=== PATIENT | female | born 1990 | race African-American/Black ===

== ENCOUNTER 2017-11-12 07:42 | Emergency (ER) | payer SELFPAY ==
[2017-11-12] MEDS: HYDROcodone/APAP 5/325MG 1 TAB TABLET PO (08:02)
== END 2017-11-12 08:06 | disposition home or self-care (01) ==
LOC: ER 08:06
DX: K04.7 Periapical abscess without sinus (principal)
CPT/HCPCS: 99283

== ENCOUNTER 2019-05-05 21:15 | Emergency (ER) | payer SELFPAY ==
[~2019-05-05] VITALS: Ht 177.8 cm; Wt 113.4 kg
[~2019-05-05 21:15] MED LIST: AMOX500T PO
[2019-05-05 21:20] VITALS: BP 149/102
[2019-05-05] MEDS ORDERED: AMOX500C PO (22:17)
[2019-05-05] MEDS ORDERED: CETI10TA22 PO (22:17)
[2019-05-05] MEDS ORDERED: METH4TAB2 PO (22:17)
[2019-05-05] MEDS ORDERED: CIPR7.5D LEFT EAR (22:17)
--- NOTE | 2019-05-05 22:17 | PHYS DOC ---
Past Medical History Past Medical History: No Pertinent History Past Surgical History: No Surgical History Alcohol Use: None Drug Use: None Adult General Chief Complaint Chief Complaint: EARACHE/EAR PAIN HPI HPI Patient is a 28 year old female who presents with 2 days of left ear pain and muffled hearing. Patient states that she does have a lot of sinus issues as chronic nasal congestion. Patient denies any kind of fever or anything patient states the left ear is throbbing. Patient states she's beginning a Q-tip and putting nails sporran or Vaseline in her ear thinking this would help. Patient rates her pain an 8 out of 10 at this time. Review of Systems Review of Systems Eyes: Denies change in visual acuity, redness, or eye pain. Left ear pain. [] HENT: nasal congestion or denies sore throat [] All other systems were reviewed and found to be within normal limits, except as documented in this note. Allergies Allergies Allergies Coded Allergies Type Severity Reaction Last Updated Verified No Known Drug Allergies 02/25/14 No Physical Exam Physical Exam Constitutional: Well developed, well nourished, no acute distress, non-toxic appearance. [] HENT: Normocephalic, atraumatic, bilateral external ears normal, oropharynx moist, no oral exudates, nose normal. Left ear reddened tympanic membrane and red, swollen, tenderness to ear canal.[] Eyes: PERRLA, EOMI, conjunctiva normal, no discharge. [] Cardiovascular:Heart rate regular rhythm, no murmur [] Lungs & Thorax: Bilateral breath sounds clear to auscultation [] Skin: Warm, dry, no erythema, no rash. [] Neurologic: Alert and oriented X 3, normal motor function, normal sensory funct ion, no focal deficits noted. [] Psychologic: Affect normal, judgement normal, mood normal. [] Current Patient Data Vital Signs Vital Signs Date Time Temp Pulse Resp B/P (MAP) Pulse Ox O2 Delivery O2 Flow Rate FiO2 05/05/19 21:20 99.0 85 18 149/102 (118) 98 Room Air 99.0 EKG EKG [] Radiology/Procedures Radiology/Procedures [] Course & Med Decision Making Course & Med Decision Making Patient is a 28 year old female who presents with 2 days of left ear pain and m uffled hearing. Patient states that she does have a lot of sinus issues as chronic nasal congestion. Patient denies any kind of fever or anything patient states the left ear is throbbing. Patient states she's beginning a Q-tip and putting Neosporin or Vaseline in her ear thinking this would help. Patient rates her pain an 8 out of 10 at this time. Alert and oriented. Skin pink warm and dry. Patient has left ear otitis media with a reddened eardrum and a tightness externa as the ear canal itself is swollen and red and tender with examination. Patient is afebrile. Lungs are clear to auscultation all lobes. Throat is pink without exudates or swelling. No sinus tenderness with palpation. Speaks in full clear sentences. Ambulatory with a steady gait. Patient denies chest pain, shortness of air, cough, chest congestion, dizziness, syncope, fever, nausea, vomiting, diarrhea, abdominal pain. Patient to start taking Zyrtec. I will give the patient a prescription for Ciprodex, amoxicillin, Medrol Dosepak. Dragon Disclaimer Dragon Disclaimer This electronic medical record was generated, in whole or in part, using a voice recognition dictation system. Departure Departure Impression: Primary Impression: Otitis externa of left ear Additional Impression: Otitis media Disposition: HOME, SELF-CARE Condition: STABLE Referrals: NO PCP (PCP) Patient Instructions: Otitis Externa, Otitis Media, Adult Additional Instructions: Follow-up with primary care provider. Take as prescribed. Take ibuprofen or Tylenol to help with pain. Scripts Methylprednisolone (MEDROL) 4 Mg Tab.ds.pk 1 PKG PO UD, #1 PKG Prov: YANNA MANZANARES APR05/05/19 Ciprofloxacin Hcl/Dexameth (CIPRODEX OTIC SUSPENSION) 7.5 Ml Drops.susp 4 DROP LEFT EAR BID for 10 Days, #1 BOTTLE Prov: YANNA MANZANARES APR05/05/19 Amoxicillin (AMOXICILLIN) 500 Mg Capsule 1 CAP PO BID, #20 CAP Prov: YANNA MANZANARES 05/05/19 Cetirizine Hcl (ZYRTEC) 10 Mg Tablet 1 TAB PO DAILY, #30 TAB 2 Refills Prov: YANNA MANZANARES APR05/05/19 Problem Qualifiers Primary Impression: Otitis externa of left ear Otitis externa type: unspecified type Chronicity: acute Qualified Codes: H60.502 - Unspecified acute noninfective otitis externa, left ear Additional Impression: Otitis media Otitis media type: suppurative Chronicity: acute Laterality: left Recurrence: non-recurrent Spontaneous tympanic membrane rupture: without spontaneous rupture Qualified Codes: H66.002 - Acute suppurative otitis media without spontaneous rupture of ear drum, left ear YANNA MANZANARES APRN May 05, 2019 22:17
== END 2019-05-05 22:26 | disposition home or self-care (01) ==
LOC: ER 21:15
DX: H66.002 Acute suppurative otitis media without spontaneous rupture of ear drum, left ear (principal); H60.92 Unspecified otitis externa, left ear
CPT/HCPCS: 99283

== ENCOUNTER 2019-11-05 14:07 | Emergency (ER) | payer BC ==
[~2019-11-05] VITALS: Ht 175.3 cm; Wt 109.0 kg
[~2019-11-05 14:07] MED LIST changes: +AMOX500C PO; +CETI10TA24 PO; +CIPR7.5D LEFT EAR; +METH4TAB2 PO
[2019-11-05 16:20] VITALS: BP 161/100
[2019-11-05] MEDS ORDERED: AMOX500C PO (17:04)
--- NOTE | 2019-11-05 17:04 | PHYS DOC ---
Past Medical History Past Medical History: No Pertinent History Past Surgical History: No Surgical History Smoking Status: Never Smoker Alcohol Use: Occasionally Drug Use: None Adult General Chief Complaint Chief Complaint: DENTAL PROBLEM HPI HPI Patient is a 29 year old [f__sex] who presents with [] Review of Systems Review of Systems Constitutional: Denies fever or chills [] Eyes: Denies change in visual acuity, redness, or eye pain [] HENT: Denies nasal congestion or sore throat [] Respiratory: Denies cough or shortness of breath [] Cardiovascular: No additional information not addressed in HPI [] GI: Denies abdominal pain, nausea, vomiting, bloody stools or diarrhea [] : Denies dysuria or hematuria [] Musculoskeletal: Denies back pain or joint pain [] Integument: Denies rash or skin lesions [] Neurologic: Denies headache, focal weakness or sensory changes [] Endocrine: Denies polyuria or polydipsia [] All other systems were reviewed and found to be within normal limits, except as documented in this note. Allergies Allergies Allergies Coded Allergies Type Severity Reaction Last Updated Verified No Known Drug Allergies 02/25/14 No Physical Exam Physical Exam Constitutional: Well developed, well nourished, no acute distress, non-toxic appearance. [] HENT: Normocephalic, atraumatic, bilateral external ears normal, oropharynx moist, no oral exudates, nose normal. [] Eyes: PERRLA, EOMI, conjunctiva normal, no discharge. [] Neck: Normal range of motion, no tenderness, supple, no stridor. [] Cardiovascular:Heart rate regular rhythm, no murmur [] Lungs & Thorax: Bilateral breath sounds clear to auscultation [] Abdomen: Bowel sounds normal, soft, no tenderness, no masses, no pulsatile masses. [] Skin: Warm, dry, no erythema, no rash. [] Back: No tenderness, no CVA tenderness. [] Extremities: No tenderness, no cyanosis, no clubbing, ROM intact, no edema. [] Neurologic: Alert and oriented X 3, normal motor function, normal sensory function, no focal deficits noted. [] Psychologic: Affect normal, judgement normal, mood normal. [] Current Patient Data Vital Signs Vital Signs Date Time Temp Pulse Resp B/P (MAP) Pulse Ox O2 Delivery O2 Flow Rate FiO2 3/30/20 16:20 98.8 86 16 161/100 (120) 99 Room Air 98.8 EKG EKG [] Radiology/Procedures Radiology/Procedures [] Course & Med Decision Making Course & Med Decision Making Pertinent Labs and Imaging studies reviewed. (See chart for details) [] Dragon Disclaimer Dragon Disclaimer This electronic medical record was generated, in whole or in part, using a voice recognition dictation system. Departure Departure Impression: Primary Impression: Otitis media Additional Impression: Dental caries Disposition: HOME, SELF-CARE Condition: STABLE Referrals: NO PCP (PCP) Patient Instructions: Dental Abscess, Otitis Media, Adult Additional Instructions: Patient is instructed to follow up with PCP in one to 2 days. Appropriate discharge instructions given to patient to return to the ED or to seek immediate medical evaluation. Patient is instructed to return to the ED if symptoms worsen or if any concerns. Scripts Amoxicillin (AMOXICILLIN) 500 Mg Capsule 1 CAP PO TID for OM, #30 CAP Prov: ANTHONY GORE DO 11/05/19 Problem Qualifiers ANTHONY GORE DO Nov 05, 2019 17:04
== END 2019-11-05 18:23 | disposition home or self-care (01) ==
LOC: ER 14:07
DX: H66.90 Otitis media, unspecified, unspecified ear (principal); K02.9 Dental caries, unspecified; K08.89 Other specified disorders of teeth and supporting structures
CPT/HCPCS: 99283

== ENCOUNTER 2020-06-26 22:46 | Emergency (ER) | payer BC ==
[~2020-06-26] VITALS: Ht 177.8 cm; Wt 109.9 kg
[~2020-06-26 22:46] MED LIST changes: -CETI10TA24 PO; +CETI10TA74 PO
[2020-06-26 23:00] VITALS: BP 139/86
[2020-06-26 23:21] LABS: CLARITY,URINE HAZY; COLOR,URINE RED
[2020-06-26 23:26] LABS: BACTERIA,URINE MANY /HPF (0-FEW); RBC,URINE >40 /HPF (0-2); WBC,URINE >40 /HPF (0-4)
[2020-06-26] MEDS ORDERED: NITR100C62 PO (23:33)
--- NOTE | 2020-06-26 23:33 | PHYS DOC ---
Past Medical History Past Medical History: No Pertinent History Past Surgical History: No Surgical History Smoking Status: Never Smoker Alcohol Use: Occasionally Drug Use: None General Adult EDM: Chief Complaint: PAIN ON URINATION HPI: HPI: Patient is a 29 year old FEMALE presents with a 2 days history of urinary frequency, urgency, and dysuria. Patient has been taking azo and drinking cranberry juice. Review of Systems: Review of Systems: Constitutional: Denies fever or chills. [] Eyes: Denies change in visual acuity. [] HENT: Denies nasal congestion or sore throat. [] Respiratory: Denies cough or shortness of breath. [] Cardiovascular: Denies chest pain or edema. [] GI: Denies abdominal pain, nausea, vomiting, bloody stools or diarrhea. [] : positive dysuria urinary frequency urinary urgency Musculoskeletal: Denies back pain or joint pain. [] Integument: Denies rash. [] Neurologic: Denies headache, focal weakness or sensory changes. [] Endocrine: Denies polyuria or polydipsia. [] Lymphatic: Denies swollen glands. [] Psychiatric: Denies depression or anxiety. [] Heart Score: Risk Factors: Risk Factors: DM, Current or recent (<one month) smoker, HTN, HLP, family history of CAD, obesity. Risk Scores: Score 0 - 3: 2.5% MACE over next 6 weeks - Discharge Home Score 4 - 6: 20.3% MACE over next 6 weeks - Admit for Clinical Observation Score 7 - 10: 72.7% MACE over next 6 weeks - Early Invasive Strategies Allergies: Allergies: Allergies Coded Allergies Type Severity Reaction Last Updated Verified No Known Drug Allergies 02/25/14 No Physical Exam: PE: Constitutional: Well developed, well nourished, no acute distress, non-toxic appearance. [] HENT: Normocephalic, atraumatic, bilateral external ears normal, oropharynx moist, no oral exudates, nose normal. [] Eyes: PERRLA, EOMI, conjunctiva normal, no discharge. [] Neck: Normal range of motion, no tenderness, supple, no stridor. [] Cardiovascular:Heart rate regular rhythm, no murmur [] Lungs & Thorax: Bilateral breath sounds clear to auscultation [] Abdomen: Bowel sounds normal, soft, no tenderness, no masses, no pulsatile masses. [] Skin: Warm, dry, no erythema, no rash. [] Back: No tenderness, no CVA tenderness. [] Extremities: No tenderness, no cyanosis, no clubbing, ROM intact, no edema. [] Neurologic: Alert and oriented X 3, normal motor function, normal sensory function, no focal deficits noted. [] Psychologic: Affect normal, judgement normal, mood normal. [] Current Patient Data: Labs: Laboratory Tests Test 06/26/20 23:00 Urine Collection Type Unknown Urine Color Red Urine Clarity Hazy Urine pH (<5.0-8.0) Urine Specific [place] (1.000-1.030) Urine Protein mg/dL (NEG-TRACE) Urine Glucose (UA) mg/dL (NEG) Urine Ketones (Stick) mg/dL (NEG) Urine Blood (NEG) Urine Nitrite (NEG) Urine Bilirubin (NEG) Urine Urobilinogen Dipstick mg/dL (0.2 mg/dL) Urine Leukocyte Esterase (NEG) Urine RBC >40 /HPF (0-2) Urine WBC >40 /HPF (0-4) Urine Bacteria Many /HPF (0-FEW) Urine Mucus Mod /LPF Vital Signs: Vital Signs Date Time Temp Pulse Resp B/P (MAP) Pulse Ox O2 Delivery O2 Flow Rate FiO2 06/26/20 23:00 98.6 107 20 139/86 (103) 99 98.6 EKG: EKG: [] Radiology/Procedures: Radiology/Procedures: [] Course & Med Decision Making: Course & Med Decision Making Pertinent Labs and Imaging studies reviewed. (See chart for details) [] Dragon Disclaimer: Marilyn Disclaimer: This electronic medical record was generated, in whole or in part, using a voice recognition dictation system. Departure Departure Impression: Primary Impression: Urinary tract infection Disposition: 01 DC HOME SELF CARE/HOMELESS Condition: STABLE Referrals: NO PCP (PCP) Patient Instructions: Urinary Tract Infection Scripts Nitrofurantoin Monohyd/M-Cryst (MACROBID 100 MG CAPSULE) 100 Mg Capsule 1 CAP PO BID for 5 Days, #10 CAP 0 Refills Prov: MARCELO CARRASCO DO 06/26/20 MARCELO CARRASCO DO Jun 26, 2020 23:33
== END 2020-06-26 23:45 | disposition home or self-care (01) ==
LOC: ER 22:46
DX: N39.0 Urinary tract infection, site not specified (principal)
CPT/HCPCS: 81001; 87086; 99283